=== PATIENT | male | born 1945 | race Caucasian/White ===

== ENCOUNTER 2018-02-10 22:03 | Emergency (ER) | payer OTHER, MEDICARE ==
[2018-02-10 22:29] LABS: BASOPHILS % (AUTO) 0.6 % (0.0-5.0); EOSINOPHILS % (AUTO) 1.4 % (0.0-8.0); HEMATOCRIT 36.5 % (42-54); LYMPHOCYTES % (AUTO) 10.6 % (21.0-51.0); MEAN CORPUSCULAR HEMOGLOBIN 30.8 pg (27.0-33.0); MEAN CORPUSCULAR HGB CONC 35.1 g/dL (32.0-36.0); MEAN CORPUSCULAR VOLUME 87.8 fL (79-99); MONOCYTES % (AUTO) 12.1 % (3.0-13.0); NEUTROPHILS % (AUTO) 75.3 % (40.0-77.0); PLATELET COUNT (AUTO) 243 K/uL (130-400); RED BLOOD CELL COUNT(AUTO) 4.16 MIL/uL (4.50-6.20); RED CELL DISTRIBUTION WIDTH 14.1 % (11.0-15.5); WHITE BLOOD COUNT (AUTO) 9.4 K/uL (4.8-10.8)
[2018-02-10 22:42] LABS: CREATININE 1.9 mg/dL (0.5-1.5); POTASSIUM 4.4 mmol/L (3.5-5.1)
[2018-02-10 22:45] LABS: ALBUMIN 3.9 g/dL (3.5-5.0); BILIRUBIN,TOTAL 0.9 mg/dL (0.2-1.0); TOTAL PROTEIN, SERUM 7.4 g/dL (6.0-8.3)
[2018-02-10] MEDS ORDERED: SODIUM CHLORIDE 0.9% 1000ML 1,000 ML IV ONE (23:08)
[2018-02-11 00:12] LABS: APPEARANCE,URINE Clear (CLEAR); BILIRUBIN,URINE Negative (NEGATIVE); COLOR,URINE Yellow (YELLOW); GLUCOSE, URINE (UA) Negative (NEGATIVE); KETONES,URINE Trace mg/dL (NEGATIVE); LEUKOCYTE ESTERASE ,URINE Negative (NEGATIVE); NITRATE,URINE Negative (NEGATIVE); OCCULT BLOOD,URINE Negative (NEGATIVE); PROTEIN,URINE Negative (NEGATIVE)
== END 2018-02-11 01:09 | disposition home or self-care (01) ==
LOC: EDH 22:03
DX: N20.2 Calculus of kidney with calculus of ureter (principal); N17.9 Acute kidney failure, unspecified; I10 Essential (primary) hypertension; Z87.442 Personal history of urinary calculi
CPT/HCPCS: 36415; 74176; 80053; 81003; 82150; 83690; 85025; 93005; 96360; 96361; 99285; J7030

== ENCOUNTER 2018-02-25 16:08 | Inpatient (IN) | payer MEDICARE, OTHER ==
[~2018-02-25] VITALS: Ht 190.5 cm; Wt 129.3 kg
[2018-02-25 16:37] LABS: BASOPHILS % (AUTO) 0.9 % (0.0-5.0); EOSINOPHILS % (AUTO) 3.2 % (0.0-8.0); HEMATOCRIT 37.7 % (42-54); LYMPHOCYTES % (AUTO) 19.5 % (21.0-51.0); MEAN CORPUSCULAR HEMOGLOBIN 30.3 pg (27.0-33.0); MEAN CORPUSCULAR HGB CONC 34.3 g/dL (32.0-36.0); MEAN CORPUSCULAR VOLUME 88.4 fL (79-99); MONOCYTES % (AUTO) 9.8 % (3.0-13.0); NEUTROPHILS % (AUTO) 66.6 % (40.0-77.0); PLATELET COUNT (AUTO) 370 K/uL (130-400); RED BLOOD CELL COUNT(AUTO) 4.26 MIL/uL (4.50-6.20); RED CELL DISTRIBUTION WIDTH 13.9 % (11.0-15.5); WHITE BLOOD COUNT (AUTO) 7.3 K/uL (4.8-10.8)
[2018-02-25] MEDS ORDERED: ASPIRIN 325 MG TABLET ONE (16:46)
[2018-02-25 16:47] LABS: INR 1.01 (0.85-1.15); PARTIAL THROMBOPLASTIN TIME 30.6 SEC (26.3-35.5); PROTHROMBIN TIME 10.6 SEC (9.6-11.6)
[2018-02-25 16:58] LABS: CREATININE 1.7 mg/dL (0.5-1.5); POTASSIUM 4.4 mmol/L (3.5-5.1)
[2018-02-25 17:11] LABS: ALBUMIN 3.9 g/dL (3.5-5.0); BILIRUBIN,TOTAL 0.5 mg/dL (0.2-1.0); CREATINE KINASE MB 0.9 ng/mL (0.5-3.6); TOTAL PROTEIN, SERUM 7.7 g/dL (6.0-8.3)
[2018-02-25] MEDS ORDERED: DEXAMETHASONE SOD PHOSPHATE 10MG/ML 1ML VIAL ONE (17:23)
[2018-02-25] MEDS ORDERED: IPRATROPIUM/ALBUTEROL SULFATE 3 ML SOLUTION IH ONE (17:25)
[2018-02-25] MEDS ORDERED: GUAIFENESIN-DM 200/20 MG 10 ML PO PRN (21:30)
[2018-02-25] MEDS ORDERED: FAMOTIDINE 20MG TAB 20 MG TAB PO SCH (22:15)
[2018-02-25] MEDS ORDERED: MORPHINE SULFATE 2 MG/ML 1ML SYG IM PRN (22:15)
[2018-02-25 22:55] VITALS: BP 152/95
[2018-02-25] MEDS: IPRATROPIUM/ALBUTEROL SULFATE 3 ML SOLUTION IH SCH (23:02)
[2018-02-25] MEDS ORDERED: FOSI40TA4 PO (23:15)
[2018-02-25] MEDS ORDERED: TYL3B PO (23:15)
[2018-02-25] MEDS ORDERED: AMLO10TA2 PO (23:15)
[2018-02-25] MEDS ORDERED: SIMV10TA6 PO (23:15)
[2018-02-25] MEDS ORDERED: INDO50CA12 PO (23:15)
[2018-02-25] MEDS ORDERED: ALLO100T PO (23:15)
[2018-02-25] MEDS ORDERED: HYDRALAZINE HCL 20 MG/ML VIAL IM SCH (23:30)
[2018-02-25] MEDS: SODIUM CHLORIDE 0.9% 1000ML 1,000 ML IV SCH (23:47)
[2018-02-26] VITALS (9 sets, daily range): BP systolic 112–161; BP diastolic 63–98
[2018-02-26] MEDS ORDERED: ONDANSETRON HCL MDV 20ML 2 MG/ML VIAL IVP PRN (00:30)
[2018-02-26] MEDS ORDERED: GLUCAGON 1MG KIT 1 MG ML IM PRN (00:30)
[2018-02-26] MEDS ORDERED: DEXTROSE 50%-WATER 50 ML DISP.SYRIN IV PRN (00:30)
[2018-02-26] MEDS ORDERED: ACETAMINOPHEN 325 MG TAB PO PRN (00:30)
[2018-02-26] MEDS: HYDRALAZINE HCL 20 MG/ML VIAL IV SCH (01:30)
[2018-02-26] MEDS: IPRATROPIUM/ALBUTEROL SULFATE 3 ML SOLUTION IH SCH ×3 (06:10→18:50)
[2018-02-26 06:23] LABS: HEMATOCRIT 36.7 % (42-54); MEAN CORPUSCULAR HEMOGLOBIN 30.7 pg (27.0-33.0); MEAN CORPUSCULAR HGB CONC 34.9 g/dL (32.0-36.0); MEAN CORPUSCULAR VOLUME 87.8 fL (79-99); PLATELET COUNT (AUTO) 389 K/uL (130-400); RED BLOOD CELL COUNT(AUTO) 4.18 MIL/uL (4.50-6.20); RED CELL DISTRIBUTION WIDTH 13.6 % (11.0-15.5); WHITE BLOOD COUNT (AUTO) 8.1 K/uL (4.8-10.8)
[2018-02-26] MEDS: INSULIN HUMULIN R 100 UNIT/ML 3ML SQ SCH ×4 (06:31→21:00)
[2018-02-26 06:44] LABS: CREATININE 1.6 mg/dL (0.5-1.5); POTASSIUM 4.5 mmol/L (3.5-5.1)
[2018-02-26] MEDS ORDERED: ENOXAPARIN SODIUM 40 MG/0.4 ML SYRINGE SQ SCH (09:00)
[2018-02-26] MEDS ORDERED: RENAL DOSE IV PRN (10:00)
[2018-02-26 10:17] LABS: HEMOGLOBIN A1C 6.3 % (4.0-6.0)
[2018-02-26] MEDS: ALLOPURINOL 100 MG TABLET PO SCH (10:23)
[2018-02-26] MEDS: AMLODIPINE BESYLATE 5 MG TAB PO SCH (10:23)
[2018-02-26] MEDS: LISINOPRIL 40 MG TABLET PO SCH (10:23)
[2018-02-26] MEDS: LEVOFLOXACIN 500 MG/D5W 100 ML 100 ML IV SCH (10:25)
[2018-02-26 10:30] LABS: CREATINE KINASE MB 0.9 ng/mL (0.5-3.6); CREATINE KINASE, TOTAL 61 U/L (21-232); MYOGLOBIN 137 ng/mL (10-92); TROPONIN I < 0.04 ng/mL (0.00-0.06)
[2018-02-26] MEDS: SODIUM CHLORIDE 0.9% 1000ML 1,000 ML IV SCH (12:22)
[2018-02-26] MEDS: ATORVASTATIN CALCIUM 10 MG TABLET PO SCH (21:12)
[2018-02-26] MEDS: INSULIN GLARGINE 100 UNITS/ML 10 ML VIAL SQ SCH (21:15)
[2018-02-27] VITALS (24 sets, daily range): BP systolic 116–152; BP diastolic 58–96
[2018-02-27] MEDS: IPRATROPIUM/ALBUTEROL SULFATE 3 ML SOLUTION IH SCH ×4 (00:05→18:48)
[2018-02-27 00:41] LABS: APPEARANCE,URINE Clear (CLEAR); BILIRUBIN,URINE Negative (NEGATIVE); COLOR,URINE Yellow (YELLOW); GLUCOSE, URINE (UA) Negative (NEGATIVE); KETONES,URINE Negative (NEGATIVE); LEUKOCYTE ESTERASE ,URINE Negative (NEGATIVE); NITRATE,URINE Negative (NEGATIVE); OCCULT BLOOD,URINE Negative (NEGATIVE); PH,URINE 7.5 (5.0-8.0); PROTEIN,URINE Negative (NEGATIVE); UROBILINOGEN,URINE 0.2 mg/dL (0.2-1.0)
[2018-02-27 00:56] LABS: BACTERIA,URINE None Seen /HPF (None Seen); MUCUS,URINE Rare LPF (None Seen); RBC,URINE None Seen /HPF (0-1); SQUAMOUS EPITHELIAL CELL,UR Few /HPF (0-2); WBC,URINE 0-1 /HPF (0-1)
[2018-02-27] MEDS: HYDRALAZINE HCL 20 MG/ML VIAL IV SCH (01:30)
[2018-02-27] MEDS: TAMSULOSIN HCL 0.4 MG CAP.ER.24H PO SCH ×2 (01:51→22:15)
[2018-02-27] MEDS: SODIUM CHLORIDE 0.9% 1000ML 1,000 ML IV SCH ×2 (01:54→16:54)
[2018-02-27 06:00] LABS: HEMATOCRIT 39.1 % (42-54); MEAN CORPUSCULAR HEMOGLOBIN 29.5 pg (27.0-33.0); MEAN CORPUSCULAR HGB CONC 33.4 g/dL (32.0-36.0); MEAN CORPUSCULAR VOLUME 88.3 fL (79-99); PLATELET COUNT (AUTO) 462 K/uL (130-400); RED BLOOD CELL COUNT(AUTO) 4.43 MIL/uL (4.50-6.20); RED CELL DISTRIBUTION WIDTH 13.8 % (11.0-15.5)
[2018-02-27 06:07] LABS: CREATININE 1.7 mg/dL (0.5-1.5); MAGNESIUM 2.1 mg/dL (1.80-2.40); POTASSIUM 4.3 mmol/L (3.5-5.1)
[2018-02-27] MEDS: INSULIN HUMULIN R 100 UNIT/ML 3ML SQ SCH ×4 (06:10→21:00)
[2018-02-27] MEDS ORDERED: ISOVUE-370 50ML VIAL IV ONE (08:00)
[2018-02-27] MEDS: LEVOFLOXACIN 500 MG/D5W 100 ML 100 ML IV SCH ×2 (08:50→10:00)
[2018-02-27] MEDS ORDERED: DEXAMETHASONE SOD PHOSPHATE 10MG/ML 1ML VIAL ONE (08:55)
[2018-02-27] MEDS ORDERED: LIDOCAINE PF 2% 5ML ABBOJECT ONE (08:55)
[2018-02-27] MEDS ORDERED: GLYCOPYRROLATE 0.2 MG/ML 5 ML VIAL ONE (08:55)
[2018-02-27] MEDS ORDERED: FENTANYL CITRATE PF 50 MCG/1 ML 2ML VIAL ONE (08:56)
[2018-02-27] MEDS ORDERED: PROPOFOL 10 MG/ML 20ML VIAL IV ONE (08:56)
[2018-02-27] MEDS ORDERED: MIDAZOLAM HCL 1 MG/ML 2ML VIAL ONE (08:56)
[2018-02-27] MEDS ORDERED: MEPERIDINE-PF 25 MG/ML SYG ONE (10:43)
[2018-02-27] MEDS ORDERED: BACITRACIN 50,000 UNIT VIAL ONE (11:41)
[2018-02-27] MEDS ORDERED: KETOROLAC TROMETHAMINE 15MG/ML IV PRN (13:00)
[2018-02-27] MEDS: LISINOPRIL 40 MG TABLET PO SCH (13:31)
[2018-02-27] MEDS: AMLODIPINE BESYLATE 5 MG TAB PO SCH (13:31)
[2018-02-27] MEDS: ALLOPURINOL 100 MG TABLET PO SCH (13:31)
[2018-02-27] MEDS ORDERED: HYDROCODONE/ACETAMINOPHEN 5/325 MG TAB PO PRN ×2 (15:45)
[2018-02-27] MEDS: ATORVASTATIN CALCIUM 10 MG TABLET PO SCH (21:31)
[2018-02-27] MEDS: INSULIN GLARGINE 100 UNITS/ML 10 ML VIAL SQ SCH (21:59)
[2018-02-28] MEDS: HYDRALAZINE HCL 20 MG/ML VIAL IV SCH (01:30)
[2018-02-28 04:00] VITALS: BP 144/89
[2018-02-28] MEDS: SODIUM CHLORIDE 0.9% 1000ML 1,000 ML IV SCH (05:38)
[2018-02-28] MEDS: IPRATROPIUM/ALBUTEROL SULFATE 3 ML SOLUTION IH SCH ×3 (06:00→10:53)
[2018-02-28] MEDS: INSULIN HUMULIN R 100 UNIT/ML 3ML SQ SCH ×2 (06:09→11:27)
[2018-02-28 06:33] LABS: HEMATOCRIT 34.6 % (42-54); MEAN CORPUSCULAR HEMOGLOBIN 30.1 pg (27.0-33.0); MEAN CORPUSCULAR HGB CONC 33.9 g/dL (32.0-36.0); MEAN CORPUSCULAR VOLUME 88.9 fL (79-99); PLATELET COUNT (AUTO) 300 K/uL (130-400); WHITE BLOOD COUNT (AUTO) 7.7 K/uL (4.8-10.8)
[2018-02-28 08:00] VITALS: BP 152/98
[2018-02-28] MEDS: AMLODIPINE BESYLATE 5 MG TAB PO SCH (08:48)
[2018-02-28] MEDS: ALLOPURINOL 100 MG TABLET PO SCH (08:49)
[2018-02-28] MEDS: LISINOPRIL 40 MG TABLET PO SCH (08:49)
[2018-02-28] MEDS: LEVOFLOXACIN 500 MG/D5W 100 ML 100 ML IV SCH (08:50)
[2018-02-28 11:00] VITALS: BP 128/83
[2018-02-28] MEDS ORDERED: LEVO250T2 PO (15:54)
== END 2018-02-28 16:00 | disposition home or self-care (01) | DRG 694 ==
LOC: EDH 16:08 → EDHIP 19:49 → 4CH 22:13
PROVIDERS: ADMIT Internal Medicine Nephrology; ATTEND Internal Medicine Nephrology
PROC: 0TF48ZZ Fragmentation in Left Kidney Pelvis, Via Natural or Artificial Opening Endoscopic (ICD-10-PCS; principal; 2018-02-27 08:58)
PROC: 0TF78ZZ Fragmentation in Left Ureter, Via Natural or Artificial Opening Endoscopic (ICD-10-PCS; 2018-02-27 08:58)
PROC: 0T778DZ Dilation of Left Ureter with Intraluminal Device, Via Natural or Artificial Opening Endoscopic (ICD-10-PCS; 2018-02-27 08:58)
DX: N13.2 Hydronephrosis with renal and ureteral calculous obstruction (principal); E11.22 Type 2 diabetes mellitus with diabetic chronic kidney disease; E11.65 Type 2 diabetes mellitus with hyperglycemia; J20.9 Acute bronchitis, unspecified; E78.5 Hyperlipidemia, unspecified; M10.9 Gout, unspecified; E66.9 Obesity, unspecified; I12.9 Hypertensive chronic kidney disease with stage 1 through stage 4 chronic kidney disease, or unspecified chronic kidney disease; N18.3 Chronic kidney disease, stage 3 (moderate); Z86.79 Personal history of other diseases of the circulatory system; Z87.01 Personal history of pneumonia (recurrent); Z87.442 Personal history of urinary calculi; Z68.35 Body mass index [BMI] 35.0-35.9, adult
CPT/HCPCS: 36415; 71045; 71250; 74018; 76000; 80048; 80053; 81001; 82360; 82550; 82553; 82948; 83036; 83735; 83874; 83880; 84484; 85025; 85027; 85347; 85610; 85730; 87088; 87804; 88300; 93005; 94640; 94664; A4354; C1758; C1769; C2617; J0360; J1100; J1644; J1650; J1815; J1885; J1956; J2001; J2175; J2250; J2704; J3010; J3490; J7030; Q9967

== ENCOUNTER 2018-03-15 16:40 | Inpatient (IN) | payer OTHER ==
[~2018-03-15] VITALS: Ht 188 cm; Wt 124.2 kg
[~2018-03-15 16:40] MED LIST: ALLO100T PO; AMLO10TA2 PO; FOSI40TA4 PO; INDO50CA12 PO; LEVO250T2 PO; SIMV10TA6 PO; TYL3B PO
[2018-03-15] MEDS ORDERED: ONDANSETRON HCL MDV 20ML 2 MG/ML VIAL ONE (17:01)
[2018-03-15] MEDS ORDERED: SODIUM CHLORIDE 0.9% 1000ML 1,000 ML IV ONE ×2 (17:01→18:47)
[2018-03-15 17:18] LABS: BASOPHILS % (AUTO) 0.4 % (0.0-5.0); EOSINOPHILS % (AUTO) 0.3 % (0.0-8.0); HEMATOCRIT 34.3 % (42-54); LYMPHOCYTES % (AUTO) 5.1 % (21.0-51.0); MEAN CORPUSCULAR HGB CONC 34.5 g/dL (32.0-36.0); MEAN CORPUSCULAR VOLUME 86.9 fL (79-99); MONOCYTES % (AUTO) 11.6 % (3.0-13.0); NEUTROPHILS % (AUTO) 82.6 % (40.0-77.0); PLATELET COUNT (AUTO) 301 K/uL (130-400); RED BLOOD CELL COUNT(AUTO) 3.94 MIL/uL (4.50-6.20); RED CELL DISTRIBUTION WIDTH 13.9 % (11.0-15.5); WHITE BLOOD COUNT (AUTO) 10.9 K/uL (4.8-10.8)
[2018-03-15 17:28] LABS: INR 1.04 (0.85-1.15); PROTHROMBIN TIME 10.9 SEC (9.6-11.6)
[2018-03-15 17:30] LABS: CREATININE 1.4 mg/dL (0.5-1.5)
[2018-03-15 17:34] LABS: ALBUMIN 3.4 g/dL (3.5-5.0); BILIRUBIN,DIRECT 0.4 mg/dL (0.0-0.3); BILIRUBIN,TOTAL 1.4 mg/dL (0.2-1.0); TOTAL PROTEIN, SERUM 6.8 g/dL (6.0-8.3)
[2018-03-15 17:40] LABS: PARTIAL THROMBOPLASTIN TIME 32.6 SEC (26.3-35.5)
[2018-03-15 18:01] LABS: BILIRUBIN,URINE Negative (NEGATIVE); COLOR,URINE Yellow (YELLOW); GLUCOSE, URINE (UA) Negative (NEGATIVE); KETONES,URINE Negative (NEGATIVE); LEUKOCYTE ESTERASE ,URINE Large (NEGATIVE); NITRATE,URINE Positive (NEGATIVE); OCCULT BLOOD,URINE Small (NEGATIVE); PROTEIN,URINE POS 2+ (NEGATIVE)
[2018-03-15 18:02] LABS: APPEARANCE,URINE SLIGHTLY CLOUDY (CLEAR)
[2018-03-15 18:17] LABS: BACTERIA,URINE Moderate /HPF (None Seen); WBC,URINE 26-50 /HPF (0-1)
[2018-03-15 18:18] LABS: MUCUS,URINE Rare LPF (None Seen); SQUAMOUS EPITHELIAL CELL,UR Rare /HPF (0-2)
[2018-03-15] MEDS ORDERED: MEROPENEM 1 GM VIAL ONE (18:47)
[2018-03-15] MEDS ORDERED: ONDANSETRON HCL 4 MG/2 ML VIAL IVP PRN (19:15)
[2018-03-15] MEDS ORDERED: GLUCAGON 1MG KIT 1 MG ML IM PRN (20:30)
[2018-03-15] MEDS ORDERED: FAMOTIDINE 20MG TAB 20 MG TAB PO SCH (20:30)
[2018-03-15] MEDS ORDERED: DEXTROSE 50%-WATER 50 ML DISP.SYRIN IV PRN (20:30)
[2018-03-15] MEDS: INSULIN HUMULIN R 100 UNIT/ML 3ML SQ SCH (21:00)
[2018-03-15] MEDS ORDERED: MORPHINE SULFATE 4 MG/1ML SYG ONE (21:26)
[2018-03-15] MEDS ORDERED: ACETAMINOPHEN 325 MG TAB ONE (23:49)
[2018-03-16 03:03] VITALS: BP 139/91
[2018-03-16] MEDS: MORPHINE SULFATE 4 MG/1ML SYG IVP PRN (04:13)
[2018-03-16] MEDS ORDERED: MEROPENEM 500MG+NS 50ML 50 ML IV SCH (05:00)
[2018-03-16 05:40] LABS: BASOPHILS % (AUTO) 0.4 % (0.0-5.0); EOSINOPHILS % (AUTO) 0.2 % (0.0-8.0); HEMATOCRIT 32.9 % (42-54); LYMPHOCYTES % (AUTO) 6.5 % (21.0-51.0); MEAN CORPUSCULAR HEMOGLOBIN 30.2 pg (27.0-33.0); MEAN CORPUSCULAR HGB CONC 34.3 g/dL (32.0-36.0); MONOCYTES % (AUTO) 11.8 % (3.0-13.0); NEUTROPHILS % (AUTO) 81.1 % (40.0-77.0); PLATELET COUNT (AUTO) 240 K/uL (130-400); RED BLOOD CELL COUNT(AUTO) 3.74 MIL/uL (4.50-6.20); RED CELL DISTRIBUTION WIDTH 14.1 % (11.0-15.5); WHITE BLOOD COUNT (AUTO) 9.9 K/uL (4.8-10.8)
[2018-03-16] MEDS ORDERED: ONDANSETRON HCL MDV 20ML 2 MG/ML VIAL IVP PRN (05:50)
[2018-03-16 05:51] LABS: ALBUMIN 2.9 g/dL (3.5-5.0); CREATININE 1.5 mg/dL (0.5-1.5); POTASSIUM 4.2 mmol/L (3.5-5.1); TOTAL PROTEIN, SERUM 6.3 g/dL (6.0-8.3)
[2018-03-16] MEDS: INSULIN HUMULIN R 100 UNIT/ML 3ML SQ SCH ×4 (07:30→20:53)
[2018-03-16 08:02] VITALS: BP 143/80
[2018-03-16] MEDS: SODIUM CHLORIDE 0.9% 1000ML 1,000 ML IV SCH ×2 (08:05→16:09)
[2018-03-16] MEDS: MEROPENEM 500 MG VIAL IVP SCH ×3 (08:05→21:48)
[2018-03-16] MEDS: ACETAMINOPHEN 325 MG TAB PO PRN ×3 (08:06→21:50)
[2018-03-16] MEDS: TAMSULOSIN HCL 0.4 MG CAP.ER.24H PO SCH (09:19)
[2018-03-16] MEDS: ALLOPURINOL 100 MG TABLET PO SCH (09:19)
[2018-03-16] MEDS: AMLODIPINE BESYLATE 5 MG TAB PO SCH (09:19)
[2018-03-16] MEDS: LISINOPRIL 40 MG TABLET PO SCH (09:20)
[2018-03-16 12:00] VITALS: BP 115/70
[2018-03-16] MEDS ORDERED: SUCR1ORA5 PO (15:34)
[2018-03-16 15:50] VITALS: BP 119/64
[2018-03-16] MEDS: NEOMYCIN/POLYMYXIN/HC OTIC SUSP 10ML BOTTLE AS SCH (17:34)
[2018-03-16 19:20] VITALS: BP 117/59
[2018-03-16] MEDS: ATORVASTATIN CALCIUM 10 MG TABLET PO SCH (21:48)
[2018-03-17] VITALS (7 sets, daily range): BP systolic 116–158; BP diastolic 69–96
[2018-03-17] MEDS: NEOMYCIN/POLYMYXIN/HC OTIC SUSP 10ML BOTTLE AS SCH ×4 (00:21→19:45)
[2018-03-17] MEDS: SODIUM CHLORIDE 0.9% 1000ML 1,000 ML IV SCH ×3 (00:23→21:16)
[2018-03-17] MEDS: ACETAMINOPHEN 325 MG TAB PO PRN (03:42)
[2018-03-17 05:03] LABS: BASOPHILS % (AUTO) 0.6 % (0.0-5.0); EOSINOPHILS % (AUTO) 0.7 % (0.0-8.0); HEMATOCRIT 29.4 % (42-54); LYMPHOCYTES % (AUTO) 8.2 % (21.0-51.0); MEAN CORPUSCULAR HEMOGLOBIN 32.5 pg (27.0-33.0); MEAN CORPUSCULAR HGB CONC 37.2 g/dL (32.0-36.0); MEAN CORPUSCULAR VOLUME 87.2 fL (79-99); MONOCYTES % (AUTO) 11.8 % (3.0-13.0); NEUTROPHILS % (AUTO) 78.7 % (40.0-77.0); PLATELET COUNT (AUTO) 208 K/uL (130-400); RED BLOOD CELL COUNT(AUTO) 3.38 MIL/uL (4.50-6.20); RED CELL DISTRIBUTION WIDTH 13.8 % (11.0-15.5); WHITE BLOOD COUNT (AUTO) 6.5 K/uL (4.8-10.8)
[2018-03-17 05:12] LABS: CREATININE 1.3 mg/dL (0.5-1.5)
[2018-03-17] MEDS: MEROPENEM 500 MG VIAL IVP SCH ×2 (05:49→14:43)
[2018-03-17] MEDS: INSULIN HUMULIN R 100 UNIT/ML 3ML SQ SCH ×4 (05:51→20:22)
[2018-03-17] MEDS: ALLOPURINOL 100 MG TABLET PO SCH (10:41)
[2018-03-17] MEDS: AMLODIPINE BESYLATE 5 MG TAB PO SCH (10:41)
[2018-03-17] MEDS: LISINOPRIL 40 MG TABLET PO SCH (10:41)
[2018-03-17] MEDS: TAMSULOSIN HCL 0.4 MG CAP.ER.24H PO SCH (10:41)
[2018-03-17] MEDS: MORPHINE SULFATE 4 MG/1ML SYG IVP PRN ×2 (15:55→21:09)
[2018-03-17] MEDS: ATORVASTATIN CALCIUM 10 MG TABLET PO SCH (19:45)
[2018-03-18] MEDS: MEROPENEM 500 MG VIAL IVP SCH ×2 (00:11→05:41)
[2018-03-18] MEDS: NEOMYCIN/POLYMYXIN/HC OTIC SUSP 10ML BOTTLE AS SCH ×4 (00:14→21:13)
[2018-03-18 04:00] VITALS: BP 154/85
[2018-03-18 05:06] LABS: BASOPHILS % (AUTO) 0.5 % (0.0-5.0); HEMATOCRIT 31.6 % (42-54); LYMPHOCYTES % (AUTO) 11.9 % (21.0-51.0); MEAN CORPUSCULAR HEMOGLOBIN 29.8 pg (27.0-33.0); MEAN CORPUSCULAR HGB CONC 34.4 g/dL (32.0-36.0); MEAN CORPUSCULAR VOLUME 86.5 fL (79-99); MONOCYTES % (AUTO) 16.4 % (3.0-13.0); NEUTROPHILS % (AUTO) 70.2 % (40.0-77.0); PLATELET COUNT (AUTO) 228 K/uL (130-400); RED BLOOD CELL COUNT(AUTO) 3.65 MIL/uL (4.50-6.20); RED CELL DISTRIBUTION WIDTH 13.4 % (11.0-15.5); WHITE BLOOD COUNT (AUTO) 5.9 K/uL (4.8-10.8)
[2018-03-18 05:25] LABS: CREATININE 1.1 mg/dL (0.5-1.5); POTASSIUM 3.8 mmol/L (3.5-5.1)
[2018-03-18] MEDS: INSULIN HUMULIN R 100 UNIT/ML 3ML SQ SCH ×3 (05:38→21:00)
[2018-03-18] MEDS: SODIUM CHLORIDE 0.9% 1000ML 1,000 ML IV SCH ×2 (05:41→17:15)
[2018-03-18 07:55] VITALS: BP 142/94
[2018-03-18] MEDS: ALLOPURINOL 100 MG TABLET PO SCH (08:46)
[2018-03-18] MEDS: TAMSULOSIN HCL 0.4 MG CAP.ER.24H PO SCH (08:46)
[2018-03-18] MEDS: LISINOPRIL 40 MG TABLET PO SCH (08:46)
[2018-03-18] MEDS: AMLODIPINE BESYLATE 5 MG TAB PO SCH (08:46)
[2018-03-18 11:00] VITALS: BP 155/78
[2018-03-18] MEDS ORDERED: CEFTRIAXONE 1GM/D5W 50ML 50 ML IV SCH (13:45)
[2018-03-18] MEDS: CEFTRIAXONE SODIUM 1 GM IVP SCH (14:50)
[2018-03-18 16:00] VITALS: BP 166/85
[2018-03-18 19:53] VITALS: BP 142/92
[2018-03-18] MEDS: ATORVASTATIN CALCIUM 10 MG TABLET PO SCH (21:18)
[2018-03-18 23:56] VITALS: BP 144/98
[2018-03-19 04:00] VITALS: BP 139/75
[2018-03-19] MEDS: NEOMYCIN/POLYMYXIN/HC OTIC SUSP 10ML BOTTLE AS SCH ×2 (04:58→12:02)
[2018-03-19] MEDS: SODIUM CHLORIDE 0.9% 1000ML 1,000 ML IV SCH (04:58)
[2018-03-19] MEDS: INSULIN HUMULIN R 100 UNIT/ML 3ML SQ SCH ×3 (05:37→16:30)
[2018-03-19 07:44] VITALS: BP 137/76
[2018-03-19] MEDS ORDERED: TAMS-1 PO (08:08)
[2018-03-19] MEDS: TAMSULOSIN HCL 0.4 MG CAP.ER.24H PO SCH (09:16)
[2018-03-19] MEDS: LISINOPRIL 40 MG TABLET PO SCH (09:16)
[2018-03-19] MEDS: ALLOPURINOL 100 MG TABLET PO SCH (09:16)
[2018-03-19] MEDS: AMLODIPINE BESYLATE 5 MG TAB PO SCH (09:16)
[2018-03-19 11:39] VITALS: BP 146/92
[2018-03-19] MEDS ORDERED: CEPH500C2 PO (15:16)
[2018-03-19] MEDS: CEFTRIAXONE SODIUM 1 GM IVP SCH (16:02)
== END 2018-03-19 17:25 | disposition home or self-care (01) | DRG 872 ==
LOC: EDH 16:40 → EDHIP 18:45 → OBSVTOIN 18:45 → 4CH 03-16 03:00 → 4BH 03-19 08:30
PROVIDERS: ADMIT Internal Medicine Nephrology; ATTEND Internal Medicine Nephrology
DX: A41.9 Sepsis, unspecified organism (principal); E11.9 Type 2 diabetes mellitus without complications; N13.2 Hydronephrosis with renal and ureteral calculous obstruction; N12 Tubulo-interstitial nephritis, not specified as acute or chronic; E44.1 Mild protein-calorie malnutrition; B96.20 Unspecified Escherichia coli [E. coli] as the cause of diseases classified elsewhere; E66.9 Obesity, unspecified; I10 Essential (primary) hypertension; B96.89 Other specified bacterial agents as the cause of diseases classified elsewhere; E78.5 Hyperlipidemia, unspecified; M10.9 Gout, unspecified; K40.20 Bilateral inguinal hernia, without obstruction or gangrene, not specified as recurrent; M81.0 Age-related osteoporosis without current pathological fracture; Z79.84 Long term (current) use of oral hypoglycemic drugs; Z86.73 Personal history of transient ischemic attack (TIA), and cerebral infarction without residual deficits; Z87.442 Personal history of urinary calculi; Z98.49 Cataract extraction status, unspecified eye; Z68.35 Body mass index [BMI] 35.0-35.9, adult
CPT/HCPCS: 36415; 74176; 80048; 80053; 80076; 81001; 82550; 82948; 83690; 84484; 85025; 85610; 85730; 87040; 87186; 93005; A4218; J0696; J2185; J2270; J7030

== ENCOUNTER 2018-03-23 07:37 | Emergency (ER) | payer OTHER ==
[~2018-03-23 07:37] MED LIST changes: +CEPH500C2 PO; -LEVO250T2 PO; +SUCR1ORA5 PO; +TAMS-1 PO; -TYL3B PO
[2018-03-23 08:15] LABS: BASOPHILS % (AUTO) 1.2 % (0.0-5.0); EOSINOPHILS % (AUTO) 4.9 % (0.0-8.0); HEMATOCRIT 32.1 % (42-54); LYMPHOCYTES % (AUTO) 19.2 % (21.0-51.0); MEAN CORPUSCULAR HEMOGLOBIN 30.2 pg (27.0-33.0); MEAN CORPUSCULAR VOLUME 86.4 fL (79-99); MONOCYTES % (AUTO) 8.7 % (3.0-13.0); PLATELET COUNT (AUTO) 392 K/uL (130-400); RED BLOOD CELL COUNT(AUTO) 3.71 MIL/uL (4.50-6.20); RED CELL DISTRIBUTION WIDTH 13.6 % (11.0-15.5)
[2018-03-23 08:25] LABS: CREATININE 1.2 mg/dL (0.5-1.5); POTASSIUM 4.1 mmol/L (3.5-5.1)
[2018-03-23 08:31] LABS: BILIRUBIN,TOTAL 0.5 mg/dL (0.2-1.0); TOTAL PROTEIN, SERUM 6.4 g/dL (6.0-8.3)
[2018-03-23] MEDS ORDERED: DEXAMETHASONE SOD PHOSPHATE 10MG/ML 1ML VIAL ONE (08:42)
[2018-03-23] MEDS ORDERED: DIPHENHYDRAMINE HCL 25 MG CAPSULE ONE (08:42)
[2018-03-23] MEDS ORDERED: FAMOTIDINE 20MG TAB 20 MG TAB ONE (08:42)
[2018-03-23 08:53] LABS: B-TYPE NATRIURETIC PEPTIDE 67 pg/mL (0-100)
[2018-03-23 10:32] LABS: APPEARANCE,URINE Clear (CLEAR); BILIRUBIN,URINE Negative (NEGATIVE); COLOR,URINE Yellow (YELLOW); GLUCOSE, URINE (UA) Negative (NEGATIVE); KETONES,URINE Negative (NEGATIVE); LEUKOCYTE ESTERASE ,URINE Trace (NEGATIVE); NITRATE,URINE Negative (NEGATIVE); OCCULT BLOOD,URINE Negative (NEGATIVE); PH,URINE 5.5 (5.0-8.0); PROTEIN,URINE Negative (NEGATIVE); UROBILINOGEN,URINE 0.2 mg/dL (0.2-1.0)
[2018-03-23 11:05] LABS: RBC,URINE 0-1 /HPF (0-1)
[2018-03-23 11:06] LABS: BACTERIA,URINE Few /HPF (None Seen)
== END 2018-03-23 12:46 | disposition home or self-care (01) ==
LOC: EDH 07:37
DX: T78.3XXA Angioneurotic edema, initial encounter (principal); I10 Essential (primary) hypertension; E11.9 Type 2 diabetes mellitus without complications; M10.9 Gout, unspecified; E78.5 Hyperlipidemia, unspecified; M81.0 Age-related osteoporosis without current pathological fracture; Z88.1 Allergy status to other antibiotic agents; Z86.73 Personal history of transient ischemic attack (TIA), and cerebral infarction without residual deficits; Z79.899 Other long term (current) drug therapy; Z87.891 Personal history of nicotine dependence
CPT/HCPCS: 36415; 80053; 81001; 83880; 84484; 85025; 96374; 99284; J1100; Q0163

== ENCOUNTER 2018-11-22 06:21 | Day surgery (SDC) | payer OTHER ==
[2018-11-18 15:48] VITALS: BP 144/89
[2018-11-18 15:55] LABS: BASOPHILS % (AUTO) 0.6 % (0.0-5.0); EOSINOPHILS % (AUTO) 1.1 % (0.0-8.0); HEMATOCRIT 40.2 % (42-54); LYMPHOCYTES % (AUTO) 17.7 % (21.0-51.0); MEAN CORPUSCULAR HEMOGLOBIN 30.3 pg (27.0-33.0); MEAN CORPUSCULAR HGB CONC 33.7 g/dL (32.0-36.0); MONOCYTES % (AUTO) 6.2 % (3.0-13.0); NEUTROPHILS % (AUTO) 74.4 % (40.0-77.0); PLATELET COUNT (AUTO) 264 K/uL (130-400); RED BLOOD CELL COUNT(AUTO) 4.47 MIL/uL (4.50-6.20); WHITE BLOOD COUNT (AUTO) 8.9 K/uL (4.8-10.8)
[2018-11-18 16:05] LABS: CREATININE 1.5 mg/dL (0.5-1.5); POTASSIUM 4.3 mmol/L (3.5-5.1)
--- NOTE | 2018-11-19 13:56 | NUR ---
NOTE ABNORMAL EKG HAS BEEN REVIEWED BY DR GN, NO FURTHER ORDERS.
[2018-11-22] VITALS (23 sets, daily range): BP systolic 114–159; BP diastolic 50–110
[~2018-11-22] VITALS: Ht 188 cm; Wt 130.6 kg
[2018-11-22] MEDS: CEFAZOLIN SODIUM 1 GM VIAL IVP SCH ×2 (06:00→07:35)
[~2018-11-22 06:21] MED LIST changes: -ALLO100T PO; +ALLO300T2 PO; -AMLO10TA2 PO; +AMLO10TA7 PO; +ATOR20TA65 PO; -CEPH500C2 PO; +CHLO25TA3 PO; -FOSI40TA4 PO; -INDO50CA12 PO; -SIMV10TA6 PO; -SUCR1ORA5 PO; -TAMS-1 PO
[2018-11-22] MEDS ORDERED: SODIUM CHLORIDE 0.9% 1000ML 1,000 ML IV ONE (06:38)
--- NOTE | 2018-11-22 07:00 | NUR ---
VALUABLES: CLOTHING, MEDICATIONS, GLASSES AND WALLET GIVEN TO SON - LUCIO JOSIE.
--- NOTE | 2018-11-22 07:03 | NUR ---
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
--- NOTE | 2018-11-22 07:11 | NUR ---
POTENTIAL FOR INFECTION: BILATERAL ABDOMEN SHAVED BY TIFFANIE GUTIERREZ.
[2018-11-22] MEDS ORDERED: LIDOCAINE PF 2% 5ML ABBOJECT ONE (07:15)
[2018-11-22] MEDS ORDERED: PROPOFOL 10 MG/ML 20ML VIAL IV ONE (07:16)
[2018-11-22] MEDS ORDERED: MIDAZOLAM HCL 1 MG/ML 2ML VIAL ONE (07:16)
[2018-11-22] MEDS ORDERED: ROCURONIUM 10MG/1ML SYR 10 MG/ML ML ONE (07:16)
[2018-11-22] MEDS ORDERED: FENTANYL CITRATE PF 50 MCG/1 ML 5ML AMP IV ONE (07:17)
[2018-11-22] MEDS ORDERED: EPHEDRINE SULFATE 50 MG/ML AMPULE ONE (07:49)
[2018-11-22] MEDS ORDERED: PHENYLEPHRINE HCL 10 MG/ML 1ML VIAL IV ONE (07:55)
[2018-11-22] MEDS ORDERED: BUPIVACAINE/EPI/PF 0.5% 30ML VIAL IJ ONE ×2 (07:58→08:38)
[2018-11-22] MEDS ORDERED: INSULIN HUMULIN R 100 UNIT/ML 3ML ONE (10:15)
[2018-11-22] MEDS ORDERED: MEPERIDINE-PF 25 MG/ML SYG ONE ×2 (10:25→10:34)
[2018-11-22] MEDS ORDERED: IPRATROPIUM/ALBUTEROL SULFATE 3 ML SOLUTION IH ONE (10:49)
--- NOTE | 2018-11-22 12:15 | NUR ---
Discharge instructions give to patient s/s of infection, pain management, and the need to void. Son and daughter at bedside no concerns.
== END 2018-11-22 12:18 | disposition home or self-care (01) ==
LOC: DAH 06:21
PROVIDERS: ATTEND Surgery
DX: K40.20 Bilateral inguinal hernia, without obstruction or gangrene, not specified as recurrent (principal); M19.90 Unspecified osteoarthritis, unspecified site; E11.65 Type 2 diabetes mellitus with hyperglycemia; Z98.890 Other specified postprocedural states; G43.909 Migraine, unspecified, not intractable, without status migrainosus; E78.00 Pure hypercholesterolemia, unspecified; I10 Essential (primary) hypertension; Z79.899 Other long term (current) drug therapy; Z68.35 Body mass index [BMI] 35.0-35.9, adult; E78.5 Hyperlipidemia, unspecified; Z87.891 Personal history of nicotine dependence
CPT/HCPCS: 36415; 49505; 80048; 82948 ×3; 85025; 93005; 94640; A4218; A4450; A4452; A4510; A4600; A4930; C1729; C1781; J0690; J1815; J2001; J2175 ×2; J2250; J2370; J2704; J3010; J3490 ×3; J7030 ×2

== ENCOUNTER 2018-12-14 11:24 | Observation (INO) | payer OTHER ==
[2018-12-14 11:40] LABS: BASOPHILS % (AUTO) 1.2 % (0.0-5.0); EOSINOPHILS % (AUTO) 3.4 % (0.0-8.0); HEMATOCRIT 36.6 % (42-54); LYMPHOCYTES % (AUTO) 23.6 % (21.0-51.0); MEAN CORPUSCULAR HEMOGLOBIN 31.2 pg (27.0-33.0); MEAN CORPUSCULAR HGB CONC 34.5 g/dL (32.0-36.0); MEAN CORPUSCULAR VOLUME 90.4 fL (79-99); MONOCYTES % (AUTO) 9.9 % (3.0-13.0); NEUTROPHILS % (AUTO) 61.9 % (40.0-77.0); PLATELET COUNT (AUTO) 321 K/uL (130-400); RED BLOOD CELL COUNT(AUTO) 4.05 MIL/uL (4.50-6.20); RED CELL DISTRIBUTION WIDTH 14.8 % (11.0-15.5); WHITE BLOOD COUNT (AUTO) 7.2 K/uL (4.8-10.8)
[2018-12-14 11:49] LABS: CREATININE 1.5 mg/dL (0.5-1.5); POTASSIUM 3.8 mmol/L (3.5-5.1)
[2018-12-14 11:55] LABS: ALBUMIN 3.7 g/dL (3.5-5.0); BILIRUBIN,TOTAL 0.5 mg/dL (0.2-1.0); TOTAL PROTEIN, SERUM 7.2 g/dL (6.0-8.3)
[2018-12-14 12:01] LABS: B-TYPE NATRIURETIC PEPTIDE 29 pg/mL (0-100)
[2018-12-14] MEDS ORDERED: NITROGLYCERIN 1GM/1 INCH PACKET TD SCH (22:30)
[2018-12-14] MEDS ORDERED: ONDANSETRON HCL 4 MG/2 ML VIAL IV PRN (22:30)
[2018-12-14] MEDS ORDERED: ACETAMINOPHEN 325 MG TAB PO PRN (22:30)
[2018-12-14] MEDS ORDERED: MORPHINE SULFATE 2 MG/ML 1ML SYG IV PRN (22:30)
[2018-12-14] MEDS ORDERED: NITROGLYCERIN 1GM/1 INCH PACKET TD ONE (23:24)
[2018-12-15 04:20] LABS: CHOLESTEROL 127 mg/dL (<200); HDL CHOLESTEROL 36 mg/dL (29-71); LDL DIRECT 73 mg/dL (0-99); TRIGLYCERIDES 141 mg/dL (30-200)
[2018-12-15] MEDS ORDERED: ACETAMINOPHEN 325 MG TAB ONE (05:10)
[2018-12-15] MEDS ORDERED: ASPIRIN 325 MG TABLET PO SCH (09:00)
[2018-12-15] MEDS ORDERED: ALLOPURINOL 300 MG TABLET PO SCH (09:00)
[2018-12-15] MEDS ORDERED: FAMOTIDINE/PF 20 MG/2 ML VIAL IV SCH (09:00)
[2018-12-15] MEDS ORDERED: AMLODIPINE BESYLATE 5 MG TAB PO SCH (09:00)
[2018-12-15] MEDS ORDERED: ENOXAPARIN SODIUM 30 MG/0.3 ML SQ SCH (09:00)
[2018-12-15] MEDS ORDERED: ***HM***Chlorthalidone 25 MG PO SCH (09:00)
[2018-12-15] MEDS ORDERED: METOPROLOL TARTRATE 25 MG TAB PO SCH (09:00)
[2018-12-15] MEDS ORDERED: ATORVASTATIN CALCIUM 20 MG TABLET PO SCH (21:00)
== END 2018-12-15 09:08 | disposition home or self-care (01) ==
LOC: EDH 11:24 → EDHIP 22:00
PROVIDERS: ADMIT Internal Medicine; ATTEND Internal Medicine
DX: R06.02 Shortness of breath (principal); G30.9 Alzheimer's disease, unspecified; R07.89 Other chest pain; R79.89 Other specified abnormal findings of blood chemistry; E78.5 Hyperlipidemia, unspecified; I10 Essential (primary) hypertension
CPT/HCPCS: 36415 ×2; 71045; 78580; 80053; 80061; 83880; 84484 ×3; 85025; 85378; 93005; 99284; A9540; G0378 ×11

== ENCOUNTER 2019-01-01 13:58 | Inpatient (IN) | payer OTHER ==
[~2019-01-01] VITALS: Ht 190.5 cm; Wt 124.5 kg
[2019-01-01 14:26] LABS: BASOPHILS % (AUTO) 0.9 % (0.0-5.0); EOSINOPHILS % (AUTO) 3.2 % (0.0-8.0); HEMATOCRIT 36.9 % (42-54); LYMPHOCYTES % (AUTO) 27.4 % (21.0-51.0); MEAN CORPUSCULAR HEMOGLOBIN 31.2 pg (27.0-33.0); MEAN CORPUSCULAR HGB CONC 34.2 g/dL (32.0-36.0); MEAN CORPUSCULAR VOLUME 91.4 fL (79-99); MONOCYTES % (AUTO) 9.9 % (3.0-13.0); NEUTROPHILS % (AUTO) 58.6 % (40.0-77.0); PLATELET COUNT (AUTO) 319 K/uL (130-400); RED BLOOD CELL COUNT(AUTO) 4.04 MIL/uL (4.50-6.20); RED CELL DISTRIBUTION WIDTH 14.9 % (11.0-15.5); WHITE BLOOD COUNT (AUTO) 6.5 K/uL (4.8-10.8)
[2019-01-01 14:37] LABS: CREATININE 1.5 mg/dL (0.5-1.5); POTASSIUM 4.3 mmol/L (3.5-5.1)
[2019-01-01 14:38] LABS: INR 0.97 (0.85-1.15); PARTIAL THROMBOPLASTIN TIME 29.5 SEC (26.3-35.5); PROTHROMBIN TIME 10.2 SEC (9.6-11.6)
[2019-01-01 14:42] LABS: ALBUMIN 4.1 g/dL (3.5-5.0); BILIRUBIN,TOTAL 0.5 mg/dL (0.2-1.0); TOTAL PROTEIN, SERUM 7.1 g/dL (6.0-8.3)
[2019-01-01] MEDS ORDERED: ASPIRIN 325 MG TABLET ONE (14:58)
[2019-01-01] MEDS ORDERED: NITROGLYCERIN 1GM/1 INCH PACKET TD ONE (14:58)
[2019-01-01] MEDS ORDERED: PHARMACY COMMUNICATION MISC SCH (17:30)
[2019-01-01] MEDS ORDERED: SODIUM CHLORIDE 0.9% 10 ML VIAL IVP PRN (17:30)
[2019-01-01] MEDS ORDERED: NITROGLYCERIN 1GM/1 INCH PACKET TD SCH (18:00)
[2019-01-01] MEDS ORDERED: ENOXAPARIN SODIUM 30 MG/0.3 ML SQ SCH (18:00)
--- NOTE | 2019-01-01 18:25 | NUR ---
Received report from outgoing nurse,pt is in ER at this time.Cardiology consult was already notified by Er staff as per report.
--- NOTE | 2019-01-01 18:55 | NUR ---
Received pt. from ER ,awake ,alert and oriented,not in any form of distress.He denies chestpain at this time.He said only his left arm but doesnt bother him anymore 2/10 pain level.
[2019-01-01 19:00] VITALS: BP 134/101
[2019-01-01 19:50] VITALS: BP 143/88
[2019-01-01] MEDS ORDERED: METF-446 PO (20:03)
[2019-01-01] MEDS ORDERED: AEC81 PO (20:12)
[2019-01-01 20:23] LABS: CREATINE KINASE, TOTAL 80 U/L (21-232); MYOGLOBIN 61 ng/mL (10-92); TROPONIN I < 0.04 ng/mL (0.00-0.06)
--- NOTE | 2019-01-01 20:40 | NUR ---
Dr. Flores here and examined pt. no new order received.He told pt he will be seen by Accredited Legal Secretary tomorrow.
[2019-01-01] MEDS: ENOXAPARIN SODIUM 30 MG/0.3 ML SQ SCH (20:55)
[2019-01-01] MEDS: ATORVASTATIN CALCIUM 20 MG TABLET PO SCH (20:55)
[2019-01-01] MEDS: NITROGLYCERIN 1GM/1 INCH PACKET TD SCH (21:52)
[2019-01-01 23:36] VITALS: BP 142/97
[2019-01-02] VITALS (7 sets, daily range): BP systolic 112–133; BP diastolic 53–90
[2019-01-02 02:30] LABS: HEMATOCRIT 35.4 % (42-54); MEAN CORPUSCULAR HEMOGLOBIN 30.7 pg (27.0-33.0); MEAN CORPUSCULAR HGB CONC 33.6 g/dL (32.0-36.0); MEAN CORPUSCULAR VOLUME 91.2 fL (79-99); PLATELET COUNT (AUTO) 273 K/uL (130-400); RED BLOOD CELL COUNT(AUTO) 3.88 MIL/uL (4.50-6.20); RED CELL DISTRIBUTION WIDTH 14.9 % (11.0-15.5); WHITE BLOOD COUNT (AUTO) 5.8 K/uL (4.8-10.8)
[2019-01-02 02:50] LABS: CARBON DIOXIDE 27 mmol/L (21-32); CHLORIDE 104 mmol/L (101-111); CREATINE KINASE, TOTAL 66 U/L (21-232); CREATININE 1.2 mg/dL (0.5-1.5); GLOMERULAR FILTR. RATE CALC 63 mL/min (>60); GLUCOSE,RANDOM 127 mg/dL (70-105); MYOGLOBIN 60 ng/mL (10-92); POTASSIUM 3.7 mmol/L (3.5-5.1); SODIUM SERUM 139 mmol/L (136-145); TROPONIN I < 0.04 ng/mL (0.00-0.06); UREA NITROGEN, BLOOD 22 mg/dL (7-18)
[2019-01-02] MEDS: ACETAMINOPHEN 325 MG TAB PO PRN ×2 (03:39→08:19)
[2019-01-02 03:54] LABS: BASOPHILS % (MANUAL) 1 % (0-2); EOSINOPHILS % (MANUAL) 5 % (1-6); LYMPHOCYTES % (MANUAL) 36 % (22-44); MAN.DIFF COMMENT-IMPRESSION MANUAL DIFFERENTIAL; MONOCYTES % (MANUAL) 11 % (2-9); SEGMENTED NEUTROPHILS % 47 % (40-70)
[2019-01-02 03:55] LABS: PLATELET MORPHOLOGY COMMENT ADEQUATE
[2019-01-02] MEDS: NITROGLYCERIN 1GM/1 INCH PACKET TD SCH ×3 (05:29→21:37)
--- NOTE | 2019-01-02 07:45 | NUR ---
AM ASSESSMENT PT LAYING IN BED, HOB ELEVATED 30 DEGREES, RESTING. [place]. A/O X 3. NO SOB. NO DISTRESS NOTED. O2 NC @ 2L. DENIES CHEST PAIN OR DISCOMFORT. DENIES PALPITATIONS. C/O HEADACHE. PO PAIN MEDICATION TO BE GIVEN. NITRO PASTE PATCH TO LT UPPER CHEST REMOVED. TELE: SR 60s. DENIES N/V AND/OR DIARRHEA. BR W/BRP. INSTRUCTED TO CALL FOR ASSISTANCE. CALL ERIN W/IN REACH.
[2019-01-02] MEDS: ASPIRIN 81 MG EC TAB PO SCH (08:18)
[2019-01-02] MEDS: ALLOPURINOL 300 MG TABLET PO SCH (08:19)
[2019-01-02] MEDS: **HM**(Chlorthalidone 25 MG PO SCH (08:19)
[2019-01-02] MEDS: AMLODIPINE BESYLATE 5 MG TAB PO SCH (08:19)
[2019-01-02] MEDS: FAMOTIDINE 20MG TAB 20 MG TAB PO SCH (08:47)
[2019-01-02] MEDS ORDERED: FAMOTIDINE/PF 20 MG/2 ML VIAL IV SCH (09:00)
--- NOTE | 2019-01-02 09:56 | NUR ---
cm note met with patient and states resides athome alone, but son lives a few feet away if needed. pt is independent with adls and ambulation. states no dc needs. goes to see md at [facility] and to [facility]. pt drives. states no dc needs. Addendum: 01/02/19 at 0957 by ARMANDO KLINE CM Amended: Links added.
[2019-01-02] MEDS: ENOXAPARIN SODIUM 30 MG/0.3 ML SQ SCH (20:12)
[2019-01-02] MEDS: ATORVASTATIN CALCIUM 20 MG TABLET PO SCH (21:37)
--- NOTE | 2019-01-03 | NUR ---
Pt. kept NPO at this time and pt demonstrated understanding.
[2019-01-03 03:28] VITALS: BP 112/68
[2019-01-03] MEDS: NITROGLYCERIN 1GM/1 INCH PACKET TD SCH ×3 (05:59→21:16)
[2019-01-03 07:00] VITALS: BP 132/90
--- NOTE | 2019-01-03 07:09 | NUR ---
Pt. NPO for stress test today,report given to incoming NOD using SBAR all questions answered.
[2019-01-03] MEDS: AMLODIPINE BESYLATE 5 MG TAB PO SCH (07:22)
[2019-01-03] MEDS: FAMOTIDINE 20MG TAB 20 MG TAB PO SCH (07:22)
[2019-01-03] MEDS: ALLOPURINOL 300 MG TABLET PO SCH (07:22)
[2019-01-03] MEDS: ASPIRIN 81 MG EC TAB PO SCH (07:22)
[2019-01-03] MEDS: **HM**(Chlorthalidone 25 MG PO SCH (07:24)
--- NOTE | 2019-01-03 08:30 | NUR ---
ASSESSMENT PT IS AAOX4. DENIES CP DENIES SOB DENIES NV NO COMPLAINTS RESTING IN BED, NPO STATUS TODAY FOR [place] STRESS TEST, AM MEDS GIVEN WITH SMALL SIP OF WATER. CALL LIGHT WITHIN REACH.
--- NOTE | 2019-01-03 09:50 | NUR ---
DOWN TO STRESS TEST VIA WC
[2019-01-03 11:00] VITALS: BP 111/80
[2019-01-03] MEDS: REGADENOSON 0.4 MG/5 ML PF SYG IVP SCH ×2 (11:30→13:59)
--- NOTE | 2019-01-03 11:30 | NUR ---
RETURNED FROM 1ST PART STRESS TEST
--- NOTE | 2019-01-03 13:26 | NUR ---
DOWN TO 2ND PART STRESS TEST VIA WC
[2019-01-03 16:45] VITALS: BP 130/85
--- NOTE | 2019-01-03 17:08 | NUR ---
RETURNED FROM STRESS TEST AAOX4 DENIES CP DENIES SOB DENIES NV.
[2019-01-03 19:02] VITALS: BP 135/79
[2019-01-03] MEDS: ENOXAPARIN SODIUM 30 MG/0.3 ML SQ SCH (20:58)
[2019-01-03] MEDS: ATORVASTATIN CALCIUM 20 MG TABLET PO SCH (20:58)
[2019-01-03 23:08] VITALS: BP 145/90
[2019-01-04 03:18] VITALS: BP 118/62
[2019-01-04 03:50] LABS: HEMATOCRIT 36.6 % (42-54); MEAN CORPUSCULAR HEMOGLOBIN 31.4 pg (27.0-33.0); MEAN CORPUSCULAR HGB CONC 34.7 g/dL (32.0-36.0); MEAN CORPUSCULAR VOLUME 90.6 fL (79-99); PLATELET COUNT (AUTO) 258 K/uL (130-400); RED BLOOD CELL COUNT(AUTO) 4.04 MIL/uL (4.50-6.20); WHITE BLOOD COUNT (AUTO) 5.4 K/uL (4.8-10.8)
[2019-01-04 03:54] LABS: HEMOGLOBIN A1C 7.9 % (4.0-6.0)
[2019-01-04 04:10] LABS: ALBUMIN 3.6 g/dL (3.5-5.0); CREATININE 1.2 mg/dL (0.5-1.5); MAGNESIUM 1.6 mg/dL (1.80-2.40); PHOSPHORUS 3.1 mg/dL (2.5-4.9); POTASSIUM 3.6 mmol/L (3.5-5.1)
[2019-01-04] MEDS: NITROGLYCERIN 1GM/1 INCH PACKET TD SCH (06:00)
[2019-01-04 07:00] VITALS: BP 111/76
--- NOTE | 2019-01-04 08:00 | NUR ---
ASSESSMENT PT IS AAOX4 DENIES CP DENIES SOB DENIES NV NO COMPLAINTS. RESTING IN BED. CALL LIGHT WITHIN REACH.
[2019-01-04] MEDS: FAMOTIDINE 20MG TAB 20 MG TAB PO SCH (08:19)
[2019-01-04] MEDS: ASPIRIN 81 MG EC TAB PO SCH (08:19)
[2019-01-04] MEDS: AMLODIPINE BESYLATE 5 MG TAB PO SCH (08:19)
[2019-01-04] MEDS: ALLOPURINOL 300 MG TABLET PO SCH (08:19)
[2019-01-04] MEDS: **HM**(Chlorthalidone 25 MG PO SCH (08:20)
--- NOTE | 2019-01-04 10:19 | NUR ---
DISCHARGE PATIENT VERBALIZES DC INSTRUCTIONS UNDERSTANDING. AGREES TO CONTINUE SAME HOME MEDS AGREES TO FOLLOW UP WITH DOCTORS ORDERED. PIV REMOVED CATH TIP INTACT, TELE PACK REMOVED, ALL BELONGINGS TAKEN. WALKED DOWN TO VEHICLE WITH NURSE AIDE.
== END 2019-01-04 11:15 | disposition home or self-care (01) | DRG 291 ==
LOC: EDH 13:58 → 2AH 16:48
PROVIDERS: ADMIT Family Medicine; ATTEND Family Medicine
DX: I11.0 Hypertensive heart disease with heart failure (principal); I50.31 Acute diastolic (congestive) heart failure; E11.9 Type 2 diabetes mellitus without complications; E78.5 Hyperlipidemia, unspecified; M10.9 Gout, unspecified; Z87.442 Personal history of urinary calculi; Z82.49 Family history of ischemic heart disease and other diseases of the circulatory system; Z88.1 Allergy status to other antibiotic agents; Z79.84 Long term (current) use of oral hypoglycemic drugs
CPT/HCPCS: 36415; 71045; 78452; 80048; 80053; 80061; 82040; 82550; 82948; 83036; 83735; 83874; 83880; 84100; 84484; 85025; 85027; 85610; 85730; 93005; 93017; 93306; 96374; A9500; G0378; J1650; J2785; J3490

== ENCOUNTER 2019-01-17 05:45 | Day surgery (SDC) | payer OTHER ==
[2019-01-14 09:45] LABS: BASOPHILS % (AUTO) 0.7 % (0.0-5.0); EOSINOPHILS % (AUTO) 4.6 % (0.0-8.0); HEMATOCRIT 38.5 % (42-54); LYMPHOCYTES % (AUTO) 23.2 % (21.0-51.0); MEAN CORPUSCULAR HGB CONC 33.6 g/dL (32.0-36.0); MEAN CORPUSCULAR VOLUME 92.3 fL (79-99); MONOCYTES % (AUTO) 9.2 % (3.0-13.0); NEUTROPHILS % (AUTO) 62.3 % (40.0-77.0); PLATELET COUNT (AUTO) 292 K/uL (130-400); RED BLOOD CELL COUNT(AUTO) 4.17 MIL/uL (4.50-6.20); RED CELL DISTRIBUTION WIDTH 14.9 % (11.0-15.5)
[2019-01-14 10:03] LABS: CREATININE 1.3 mg/dL (0.5-1.5); POTASSIUM 4.2 mmol/L (3.5-5.1)
[2019-01-14 10:06] LABS: INR 0.99 (0.85-1.15); PARTIAL THROMBOPLASTIN TIME 30.8 SEC (26.3-35.5); PROTHROMBIN TIME 10.4 SEC (9.6-11.6)
[2019-01-14 10:25] VITALS: BP 144/90
[2019-01-14 11:46] LABS: APPEARANCE,URINE Clear (CLEAR); BILIRUBIN,URINE Negative (NEGATIVE); COLOR,URINE Yellow (YELLOW); GLUCOSE, URINE (UA) Negative (NEGATIVE); KETONES,URINE Negative (NEGATIVE); LEUKOCYTE ESTERASE ,URINE Negative (NEGATIVE); NITRATE,URINE Negative (NEGATIVE); OCCULT BLOOD,URINE Negative (NEGATIVE); PROTEIN,URINE Negative (NEGATIVE); UROBILINOGEN,URINE 0.2 mg/dL (0.2-1.0)
--- NOTE | 2019-01-14 14:19 | NUR ---
NOTE REPORTED CREAT 1.3 TO LION, NO FURTHER ORDER GIVEN
[~2019-01-17] VITALS: Ht 241.3 cm; Wt 128.5 kg
[2019-01-17] VITALS (10 sets, daily range): BP systolic 110–138; BP diastolic 51–88
[~2019-01-17 05:45] MED LIST changes: +AEC81 PO; +COQ10 PO; +MELATONIN PO; +METF-446 PO; +SODIUM CHLORIDE 0.9% 500ML 500 ML IV SCH; +[UNRECOGNIZED DRUG - OTHER] PO
[2019-01-17] MEDS ORDERED: ASPI-1026 PO (08:00)
[2019-01-17] MEDS ORDERED: NITR0.4T50 SL (08:00)
[2019-01-17] MEDS ORDERED: ISOS30TA6 PO (08:00)
[2019-01-17] MEDS ORDERED: SODIUM CHLORIDE 0.9% 1000ML 1,000 ML IV ONE (08:17)
[2019-01-17] MEDS ORDERED: ACETAMINOPHEN 325 MG TAB ONE (08:49)
[2019-01-17] MEDS ORDERED: ACETAMINOPHEN 325 MG TAB PO SCH (09:00)
[2019-01-17] MEDS ORDERED: NITROGLYCERIN 5 MG/ML 10 ML VIAL IV ONE (09:08)
[2019-01-17] MEDS ORDERED: LIDOCAINE HCL 2% 20ML ONE (09:08)
[2019-01-17] MEDS ORDERED: IOHEXOL-350 50ML VIAL IV ONE ×2 (09:13→10:15)
[2019-01-17] MEDS ORDERED: IOHEXOL 350 MG/ML 100ML INFUS..BTL IV ONE (09:13)
[2019-01-17] MEDS ORDERED: MIDAZOLAM HCL 1 MG/ML 2ML VIAL ONE (09:56)
[2019-01-17] MEDS ORDERED: SODIUM CHLORIDE 0.9% 1000ML 1,000 ML IV SCH (10:40)
[2019-01-17] MEDS ORDERED: ACETAMINOPHEN-CODEINE 300/30MG TAB PO PRN ×2 (10:45)
== END 2019-01-17 16:10 | disposition home or self-care (01) ==
LOC: DAH 05:45
PROVIDERS: ATTEND Internal Medicine Cardiovascular Disease
DX: I25.118 Atherosclerotic heart disease of native coronary artery with other forms of angina pectoris (principal); R07.9 Chest pain, unspecified; M10.9 Gout, unspecified; Z79.899 Other long term (current) drug therapy; Z79.84 Long term (current) use of oral hypoglycemic drugs; Z79.4 Long term (current) use of insulin; I10 Essential (primary) hypertension; Z68.35 Body mass index [BMI] 35.0-35.9, adult; E78.00 Pure hypercholesterolemia, unspecified; Z88.8 Allergy status to other drugs, medicaments and biological substances; R94.39 Abnormal result of other cardiovascular function study; I70.0 Atherosclerosis of aorta; R06.00 Dyspnea, unspecified; I35.0 Nonrheumatic aortic (valve) stenosis; I73.9 Peripheral vascular disease, unspecified
CPT/HCPCS: 36415; 71045; 75625; 80048; 81003; 82948 ×2; 85025; 85610; 85730; 93005; 93458; A4606; C1760; C1894; J1644; J2250; J3490 ×2; J7030; Q9965; Q9967 ×3; 99156; 99157

== ENCOUNTER 2020-03-24 15:25 | Observation (INO) | payer OTHER ==
[~2020-03-24] VITALS: Ht 188 cm; Wt 132.7 kg
[~2020-03-24 15:25] MED LIST changes: -AEC81 PO; +ASPI-1026 PO; +ISOS30TA6 PO; +NITR0.4T50 SL; -SODIUM CHLORIDE 0.9% 500ML 500 ML IV SCH
[2020-03-24 16:12] LABS: BASOPHILS % (AUTO) 1.1 % (0.0-5.0); EOSINOPHILS % (AUTO) 1.8 % (0.0-8.0); HEMATOCRIT 40.4 % (42-54); LYMPHOCYTES % (AUTO) 28.8 % (21.0-51.0); MEAN CORPUSCULAR HEMOGLOBIN 31.3 pg (27.0-33.0); MEAN CORPUSCULAR HGB CONC 35.1 g/dL (32.0-36.0); MONOCYTES % (AUTO) 10.7 % (3.0-13.0); NEUTROPHILS % (AUTO) 57.1 % (40.0-77.0); PLATELET COUNT (AUTO) 264 K/uL (130-400); RED BLOOD CELL COUNT(AUTO) 4.54 MIL/uL (4.50-6.20); RED CELL DISTRIBUTION WIDTH 12.8 % (11.0-15.5); WHITE BLOOD COUNT (AUTO) 6.6 K/uL (4.8-10.8)
[2020-03-24 16:24] LABS: CREATININE 1.3 mg/dL (0.5-1.5); POTASSIUM 4.3 mmol/L (3.5-5.1)
[2020-03-24 16:26] LABS: INR 0.92 (0.85-1.15); PARTIAL THROMBOPLASTIN TIME 23.4 SEC (26.3-35.5)
[2020-03-24 16:29] LABS: ALBUMIN 4.1 g/dL (3.5-5.0); BILIRUBIN,TOTAL 0.6 mg/dL (0.2-1.0); TOTAL PROTEIN, SERUM 7.4 g/dL (6.0-8.3)
[2020-03-24] MEDS ORDERED: ONDANSETRON HCL 4 MG/2 ML VIAL IV PRN (19:45)
[2020-03-24] MEDS ORDERED: ACETAMINOPHEN 325 MG TAB PO PRN ×2 (19:45)
[2020-03-24] MEDS ORDERED: ALBUTEROL INHALER 90MCG/INH IH PRN (20:00)
[2020-03-24] MEDS ORDERED: AZITHROMYCIN 500MG+NS 250ML 250 ML IV SCH (20:00)
[2020-03-24] MEDS ORDERED: AZITHROMYCIN 500MG+NS 250ML 250 ML IV ONE (20:15)
[2020-03-24] MEDS: FAMOTIDINE/PF 20 MG/2 ML VIAL IV SCH (21:00)
[2020-03-24 23:20] VITALS: BP 157/102
[2020-03-25] MEDS ORDERED: GLUCAGON 1MG KIT 1 MG ML IM PRN (00:15)
[2020-03-25] MEDS ORDERED: DEXTROSE 50%-WATER 50 ML DISP.SYRIN IV PRN (00:15)
[2020-03-25 03:09] VITALS: BP 144/95
[2020-03-25 05:55] LABS: EOSINOPHILS % (AUTO) 2.9 % (0.0-8.0); HEMATOCRIT 38.9 % (42-54); LYMPHOCYTES % (AUTO) 30.1 % (21.0-51.0); MEAN CORPUSCULAR HEMOGLOBIN 31.1 pg (27.0-33.0); MEAN CORPUSCULAR HGB CONC 34.4 g/dL (32.0-36.0); MEAN CORPUSCULAR VOLUME 90.3 fL (79-99); MONOCYTES % (AUTO) 11.3 % (3.0-13.0); NEUTROPHILS % (AUTO) 54.1 % (40.0-77.0); PLATELET COUNT (AUTO) 239 K/uL (130-400); RED BLOOD CELL COUNT(AUTO) 4.31 MIL/uL (4.50-6.20); RED CELL DISTRIBUTION WIDTH 12.8 % (11.0-15.5); WHITE BLOOD COUNT (AUTO) 6.8 K/uL (4.8-10.8)
[2020-03-25 06:14] LABS: ALBUMIN 3.7 g/dL (3.5-5.0); BILIRUBIN,TOTAL 0.9 mg/dL (0.2-1.0); CREATININE 1.2 mg/dL (0.5-1.5); POTASSIUM 3.5 mmol/L (3.5-5.1); TOTAL PROTEIN, SERUM 6.8 g/dL (6.0-8.3)
[2020-03-25] MEDS ORDERED: INSULIN HUMULIN R 100 UNIT/ML 3ML SQ SCH (07:30)
[2020-03-25 07:31] VITALS: BP 154/100
[2020-03-25] MEDS: FAMOTIDINE/PF 20 MG/2 ML VIAL IV SCH (08:35)
--- NOTE | 2020-03-25 09:42 | NUR ---
Patient expressed concern that his heart and blood pressure medications are producing severe headaches and eye burning sensation. Patient would like to leave A. Dr. Rodriguez notified and will assess patient.
--- NOTE | 2020-03-25 10:20 | NUR ---
Reviewed home medications, lab and xray results with Dr. Sierra. Concern for Covid-19 risk explained to patient by Dr. Sierra based on CXR. Patient stated he has always had issues with shortness of breath and his main concern was home medications causing him headaches and eye pain. Patient stated that he had no issues with the care he was provided by staff during this admission, however has not had medications addressed. Dr. Sierra reviewed home medications with patient and their side effects and explained risks and consequences that can occur without medical treatment for possible pneumonia or not getting tested for COVID 19. Dr. Sierra instructed patient if refused treatment and insists on leaving AMA, that he should self isolate for the recommended 2 weeks and use of mask. He was also instructed to follow up after the appropriate isolation period with [facility] to address home medications. Patient verbalized understanding. PIV to LFA removed, bleeding controlled and dressing applied. AMA signed. Patient provided mask and instructed on proper use of mask. Patient ambulated to exit.
--- NOTE | 2020-03-25 12:26 | NUR ---
[facility] NOTES PATIENT LEFT [facility] COMPLETING DETAILED ASSESS,EMT Addendum: 03/25/20 at 1227 by NUZHAT CUNNINGHAM RN CM Amended: Links added.
== END 2020-03-25 10:30 | disposition left against medical advice (07) ==
LOC: EDH 15:25 → INTOOBSV 19:43 → OBSVTOIN 19:43 → EDHIP 19:43 → 3BH 21:55
PROVIDERS: ADMIT Hospitalist; ATTEND Hospitalist
DX: J15.6 Pneumonia due to other Gram-negative bacteria (principal); E11.9 Type 2 diabetes mellitus without complications; E78.5 Hyperlipidemia, unspecified; I10 Essential (primary) hypertension; M10.9 Gout, unspecified; Z79.899 Other long term (current) drug therapy; Z86.73 Personal history of transient ischemic attack (TIA), and cerebral infarction without residual deficits; Z87.442 Personal history of urinary calculi; Z88.1 Allergy status to other antibiotic agents
CPT/HCPCS: 36415 ×2; 70450; 71045; 80053 ×2; 82550; 82948; 83880; 84484; 85025 ×2; 85610; 85730; 93005; 96374; 99285; G0378 ×6; J0456; J3490 ×2

== ENCOUNTER 2020-04-30 13:18 | Emergency (ER) | payer OTHER ==
[2020-04-30 15:19] LABS: BASOPHILS % (AUTO) 0.4 % (0.0-5.0); HEMATOCRIT 38.9 % (42-54); LYMPHOCYTES % (AUTO) 21.9 % (21.0-51.0); MEAN CORPUSCULAR HGB CONC 35.5 g/dL (32.0-36.0); MEAN CORPUSCULAR VOLUME 87.4 fL (79-99); MONOCYTES % (AUTO) 10.6 % (3.0-13.0); NEUTROPHILS % (AUTO) 65.5 % (40.0-77.0); PLATELET COUNT (AUTO) 242 K/uL (130-400); RED BLOOD CELL COUNT(AUTO) 4.45 MIL/uL (4.50-6.20); RED CELL DISTRIBUTION WIDTH 13.1 % (11.0-15.5); WHITE BLOOD COUNT (AUTO) 6.9 K/uL (4.8-10.8)
[2020-04-30 15:42] LABS: INR 0.98 (0.85-1.15); PARTIAL THROMBOPLASTIN TIME 26.9 SEC (26.3-35.5); PROTHROMBIN TIME 10.6 SEC (9.6-11.6)
[2020-04-30 15:48] LABS: ALBUMIN 3.8 g/dL (3.5-5.0); CREATININE 1.7 mg/dL (0.5-1.5); POTASSIUM 3.5 mmol/L (3.5-5.1); TOTAL PROTEIN, SERUM 6.7 g/dL (6.0-8.3)
[2020-04-30 17:54] LABS: APPEARANCE,URINE Clear (CLEAR); BILIRUBIN,URINE Small (NEGATIVE); COLOR,URINE Dark Yellow (YELLOW); GLUCOSE, URINE (UA) Negative (NEGATIVE); KETONES,URINE Trace mg/dL (NEGATIVE); LEUKOCYTE ESTERASE ,URINE Trace (NEGATIVE); NITRATE,URINE Negative (NEGATIVE); OCCULT BLOOD,URINE Negative (NEGATIVE); PROTEIN,URINE Trace mg/dL (NEGATIVE)
[2020-04-30 18:31] LABS: BACTERIA,URINE Few /HPF (None Seen); MUCUS,URINE Few LPF (None Seen); SQUAMOUS EPITHELIAL CELL,UR Few /HPF (0-2)
== END 2020-04-30 18:51 | disposition home or self-care (01) ==
LOC: EDH 13:18
DX: E11.65 Type 2 diabetes mellitus with hyperglycemia (principal); R53.1 Weakness; M19.90 Unspecified osteoarthritis, unspecified site; E78.00 Pure hypercholesterolemia, unspecified; M10.9 Gout, unspecified; Z88.1 Allergy status to other antibiotic agents; Z88.8 Allergy status to other drugs, medicaments and biological substances
CPT/HCPCS: 36415; 70450; 71045; 80053; 81001; 82550; 83605; 84484; 85025; 85378; 85610; 85730; 87804; 93005

== ENCOUNTER 2021-06-04 12:22 | Emergency (ER) | payer OTHER, MEDICARE ==
[~2021-06-04] VITALS: Ht 188 cm; Wt 125.6 kg
[~2021-06-04 12:22] MED LIST changes: +AMLO-258 PO; -AMLO10TA7 PO; -ISOS30TA6 PO; +ISOS30TA92 PO
[2021-06-04 12:24] VITALS: BP 151/110
[2021-06-04 12:54] LABS: BASOPHILS % (AUTO) 0.6 % (0.0-5.0); EOSINOPHILS % (AUTO) 2.2 % (0.0-8.0); HEMATOCRIT 38.9 % (42-54); LYMPHOCYTES % (AUTO) 18.3 % (21.0-51.0); MEAN CORPUSCULAR HEMOGLOBIN 29.8 pg (27.0-33.0); MEAN CORPUSCULAR HGB CONC 33.7 g/dL (32.0-36.0); MEAN CORPUSCULAR VOLUME 88.6 fL (79-99); MONOCYTES % (AUTO) 9.1 % (3.0-13.0); NEUTROPHILS % (AUTO) 69.2 % (40.0-77.0); PLATELET COUNT (AUTO) 264 K/uL (130-400); RED BLOOD CELL COUNT(AUTO) 4.39 MIL/uL (4.50-6.20); RED CELL DISTRIBUTION WIDTH 13.9 % (11.0-15.5); WHITE BLOOD COUNT (AUTO) 8.2 K/uL (4.8-10.8)
[2021-06-04 13:06] LABS: CREATININE 1.2 mg/dL (0.5-1.5)
[2021-06-04 13:10] LABS: ALBUMIN 4.1 g/dL (3.5-5.0); BILIRUBIN,TOTAL 0.5 mg/dL (0.2-1.0); CRP QUANTITATIVE 22.9 mg/L (0.00-9.0); TOTAL PROTEIN, SERUM 7.5 g/dL (6.0-8.3)
[2021-06-04 13:23] LABS: PROTHROMBIN TIME 10.9 SEC (9.6-11.6)
[2021-06-04 13:24] LABS: PARTIAL THROMBOPLASTIN TIME 29.1 SEC (26.3-35.5)
== END 2021-06-04 14:30 | disposition home or self-care (01) ==
LOC: EDH 12:22
DX: R22.32 Localized swelling, mass and lump, left upper limb (principal); I25.10 Atherosclerotic heart disease of native coronary artery without angina pectoris; I10 Essential (primary) hypertension; M19.90 Unspecified osteoarthritis, unspecified site; E78.00 Pure hypercholesterolemia, unspecified; E11.9 Type 2 diabetes mellitus without complications; Z79.82 Long term (current) use of aspirin; Z79.899 Other long term (current) drug therapy; Z79.84 Long term (current) use of oral hypoglycemic drugs; Z88.1 Allergy status to other antibiotic agents; Z87.442 Personal history of urinary calculi
CPT/HCPCS: 36415; 71045; 80053; 85025; 85610; 85730; 86140; 93005; 93971

== ENCOUNTER 2022-11-05 15:59 | Emergency (ER) | payer MEDICARE, OTHER ==
[~2022-11-05] VITALS: Ht 188 cm; Wt 133.8 kg
[2022-11-05 18:27] LABS: BASOPHILS % (AUTO) 1.1 % (0.0-5.0); EOSINOPHILS % (AUTO) 3.2 % (0.0-8.0); HEMATOCRIT 37.9 % (42-54); LYMPHOCYTES % (AUTO) 26.4 % (21.0-51.0); MEAN CORPUSCULAR HEMOGLOBIN 30.3 pg (27.0-33.0); MEAN CORPUSCULAR HGB CONC 33.8 g/dL (32.0-36.0); MEAN CORPUSCULAR VOLUME 89.6 fL (79-99); MONOCYTES % (AUTO) 10.6 % (3.0-13.0); NEUTROPHILS % (AUTO) 57.8 % (40.0-77.0); PLATELET COUNT (AUTO) 219 K/uL (130-400); RED BLOOD CELL COUNT(AUTO) 4.23 MIL/uL (4.50-6.20); RED CELL DISTRIBUTION WIDTH 15.7 % (11.0-15.5); WHITE BLOOD COUNT (AUTO) 5.6 K/uL (4.8-10.8)
[2022-11-05 18:35] LABS: CREATININE 1.4 mg/dL (0.5-1.5); POTASSIUM 4.2 mmol/L (3.5-5.1)
[2022-11-05 18:36] VITALS: BP 153/93
[2022-11-05 18:40] LABS: ALBUMIN 3.8 g/dL (3.5-5.0); TOTAL PROTEIN, SERUM 6.9 g/dL (6.0-8.3)
[2022-11-05 18:49] LABS: B-TYPE NATRIURETIC PEPTIDE 23 pg/mL (0-100)
[2022-11-05] MEDS ORDERED: CLIN-141 PO (18:57)
== END 2022-11-05 19:05 | disposition home or self-care (01) ==
LOC: EDH 15:59
DX: I87.8 Other specified disorders of veins (principal); R60.9 Edema, unspecified; L03.115 Cellulitis of right lower limb; E11.9 Type 2 diabetes mellitus without complications; E78.00 Pure hypercholesterolemia, unspecified; Z79.82 Long term (current) use of aspirin; M19.90 Unspecified osteoarthritis, unspecified site; I10 Essential (primary) hypertension; Z79.899 Other long term (current) drug therapy; Z98.890 Other specified postprocedural states; Z79.84 Long term (current) use of oral hypoglycemic drugs; Z88.1 Allergy status to other antibiotic agents; Z88.8 Allergy status to other drugs, medicaments and biological substances; R60.0 Localized edema; L03.116 Cellulitis of left lower limb; G43.909 Migraine, unspecified, not intractable, without status migrainosus
CPT/HCPCS: 36415; 80053; 83880; 85025; 93971

== ENCOUNTER 2022-12-08 13:33 | Emergency (ER) | payer OTHER ==
[~2022-12-08] VITALS: Ht 188 cm; Wt 127.9 kg
[~2022-12-08 13:33] MED LIST changes: +CLIN-141 PO
[2022-12-08 14:08] LABS: HEMATOCRIT 42.2 % (42-54); MEAN CORPUSCULAR HEMOGLOBIN 30.5 pg (27.0-33.0); MEAN CORPUSCULAR HGB CONC 34.4 g/dL (32.0-36.0); MEAN CORPUSCULAR VOLUME 88.8 fL (79-99); RED BLOOD CELL COUNT(AUTO) 4.75 MIL/uL (4.50-6.20); RED CELL DISTRIBUTION WIDTH 14.6 % (11.0-15.5); WHITE BLOOD COUNT (AUTO) 9.6 K/uL (4.8-10.8)
[2022-12-08 14:17] LABS: CREATININE 1.3 mg/dL (0.5-1.5); POTASSIUM 3.7 mmol/L (3.5-5.1)
[2022-12-08 14:22] LABS: ALBUMIN 3.9 g/dL (3.5-5.0); TOTAL PROTEIN, SERUM 7.3 g/dL (6.0-8.3)
[2022-12-08] MEDS: 0.9%NACL 1000ML 1,000 ML IV SCH ×2 (14:22→15:32)
[2022-12-08] MEDS ORDERED: FAMOTIDINE 20MG VIAL IV ONE (14:30)
[2022-12-08 14:36] LABS: APPEARANCE,URINE CLEAR (CLEAR); BACTERIA,URINE RARE /HPF (None Seen); BILIRUBIN,URINE NEGATIVE (NEGATIVE); COLOR,URINE YELLOW (YELLOW); GLUCOSE, URINE (UA) NEGATIVE (NEGATIVE); KETONES,URINE NEGATIVE (NEGATIVE); LEUKOCYTE ESTERASE ,URINE NEGATIVE Leu/uL (NEGATIVE); MUCUS,URINE RARE LPF (None Seen); NITRATE,URINE NEGATIVE (NEGATIVE); OCCULT BLOOD,URINE NEGATIVE (NEGATIVE); PH,URINE 5.5 (5.0-8.0); PROTEIN,URINE 20 mg/dL (NEGATIVE); UROBILINOGEN,URINE 0.2 mg/dL (0.2-1.0)
[2022-12-08] MEDS ORDERED: FAMO-136 PO (16:39)
[2022-12-08] MEDS ORDERED: LACT1CAP81 PO (16:39)
[2022-12-08 16:50] VITALS: BP 149/87
== END 2022-12-08 17:09 | disposition home or self-care (01) ==
LOC: EDH 13:33
DX: K52.9 Noninfective gastroenteritis and colitis, unspecified (principal); E11.9 Type 2 diabetes mellitus without complications; E78.00 Pure hypercholesterolemia, unspecified; I10 Essential (primary) hypertension; M19.90 Unspecified osteoarthritis, unspecified site; Z79.899 Other long term (current) drug therapy; Z88.1 Allergy status to other antibiotic agents; Z88.8 Allergy status to other drugs, medicaments and biological substances; Z79.82 Long term (current) use of aspirin; Z79.84 Long term (current) use of oral hypoglycemic drugs; Z98.890 Other specified postprocedural states
CPT/HCPCS: 99284; 96374; 96361; 84484; 80053; 83690; 85027; 81001; 36415; 93005; J3490; J7030

== ENCOUNTER 2023-12-29 12:19 | Emergency (ER) | payer OTHER ==
[~2023-12-29] VITALS: Ht 188 cm; Wt 130.6 kg
[~2023-12-29 12:19] MED LIST changes: +FAMO-136 PO; +LACT1CAP81 PO
[2023-12-29 12:41] VITALS: BP 131/84
[2023-12-29 13:39] LABS: RAPID GROUP A STREP negative (NEGATIVE)
[2023-12-29 13:45] LABS: SARS-CoV-2, RNA, NAAT POSITIVE SARS CoV-2 (NEGATIVE)
[2023-12-29 13:50] LABS: INFLUENZA TYPE A Negative For Type A (NEGATIVE); INFLUENZA TYPE B Negative For Type B (NEGATIVE)
[2023-12-29 14:11] VITALS: TEMP 101.1
[2023-12-29] MEDS: ACETAMINOPHEN 500 MG TABLET ONE (14:11)
[2023-12-29] MEDS: ACETAMINOPHEN 500 MG TABLET PO ONE (14:11)
[2023-12-29] MEDS ORDERED: FLUT16H NASAL (15:33)
[2023-12-29] MEDS ORDERED: DEXT30SU5 PO (15:33)
[2023-12-29 15:48] VITALS: PULSE 88; RESP 20; O2SAT 96
== END 2023-12-29 15:54 | disposition home or self-care (01) ==
LOC: EDH 12:19
DX: U07.1 COVID-19 (principal); R05.9 Cough, unspecified; R09.81 Nasal congestion; E11.9 Type 2 diabetes mellitus without complications; E78.00 Pure hypercholesterolemia, unspecified; I10 Essential (primary) hypertension; M19.90 Unspecified osteoarthritis, unspecified site; Z79.82 Long term (current) use of aspirin; Z79.84 Long term (current) use of oral hypoglycemic drugs; Z79.899 Other long term (current) drug therapy; Z87.442 Personal history of urinary calculi; Z88.1 Allergy status to other antibiotic agents
CPT/HCPCS: 71045; 87635; 87804; 87880

== ENCOUNTER 2024-01-04 12:53 | Emergency (ER) | payer OTHER ==
[~2024-01-04] VITALS: Ht 188 cm; Wt 129.3 kg
[~2024-01-04 12:53] MED LIST changes: +DEXT30SU5 PO; +FLUT16H NASAL
[2024-01-04 12:54] VITALS: BP 166/112; PULSE 67; RESP 16
[2024-01-04 13:50] LABS: BASOPHILS # (AUTO) 0.01 K/uL (0.00-0.20); BASOPHILS % (AUTO) 0.3 % (0.0-5.0); EOSINOPHILS # (AUTO) 0.04 K/uL (0.00-0.70); HEMATOCRIT 37.4 % (42-54); IMMATURE GRANULOCYTE ABSOLUTE 0.05 K/uL (0-1); LYMPHOCYTES # (AUTO) 0.8 K/uL (1.0-4.8); LYMPHOCYTES % (AUTO) 20.1 % (21.0-51.0); MEAN CORPUSCULAR HEMOGLOBIN 31.2 pg (27.0-33.0); MEAN CORPUSCULAR HGB CONC 34.8 g/dL (32.0-36.0); MEAN CORPUSCULAR VOLUME 89.7 fL (79-99); MONOCYTES # (AUTO) 0.5 K/uL (0.1-1.0); MONOCYTES % (AUTO) 11.8 % (3.0-13.0); NEUTROPHILS # (AUTO) 2.6 K/uL (1.8-7.7); NEUTROPHILS % (AUTO) 65.5 % (40.0-77.0); PLATELET COUNT (AUTO) 219 K/uL (130-400); RED BLOOD CELL COUNT(AUTO) 4.17 MIL/uL (4.50-6.20); RED CELL DISTRIBUTION WIDTH 14.2 % (11.0-15.5)
[2024-01-04 14:00] LABS: CREATININE 1.3 mg/dL (0.5-1.5); POTASSIUM 4.1 mmol/L (3.5-5.1)
[2024-01-04 14:05] LABS: ALBUMIN 3.8 g/dL (3.5-5.0); BILIRUBIN,TOTAL 0.5 mg/dL (0.2-1.0); TOTAL PROTEIN, SERUM 7.4 g/dL (6.0-8.3)
== END 2024-01-04 15:35 | disposition left against medical advice (07) ==
LOC: EDH 12:53
DX: R53.1 Weakness (principal); R06.02 Shortness of breath; Z53.21 Procedure and treatment not carried out due to patient leaving prior to being seen by health care provider
CPT/HCPCS: 36415; 71045; 80053; 85025; 93005; 99281